=== PATIENT | male | born 1960 | race Caucasian/White ===

== ENCOUNTER 2017-06-26 13:35 | Emergency (ER) | payer SELFPAY ==
[~2017-06-26] VITALS: Ht 170.2 cm; Wt 117.9 kg
[2017-06-26 13:56] VITALS: BP 120/62
[2017-06-26 14:25] LABS: APPEARANCE,URINE CLEAR; BILIRUBIN, URINE NEGATIVE (NEGATIVE); GLUCOSE, URINE (UA) NEGATIVE (NEGATIVE); KETONES,URINE NEGATIVE (NEGATIVE); LEUKOCYTE ESTERASE ,URINE 1+ (NEGATIVE); NITRITE,URINE NEGATIVE (NEGATIVE); PH,URINE 6 (4.5-8.0); PROTEIN,URINE 2+ (NEGATIVE); UROBILINOGEN,URINE NORMAL MG/DL (0.0-1.0)
[2017-06-26] MEDS ORDERED: Ketorolac 60mg Inj IM ONE (14:30)
[2017-06-26 14:36] LABS: COLOR,URINE YELLOW
--- NOTE | 2017-06-26 14:56 | Emergency Room Report ---
History of Present Illness General Chief Complaint: Pain Source: Patient Present Illness HPI This patient states that he has a history of recurrent kidney stones. He states that he has had to have lithotripsy a little over a year ago. He states that he has been having flank pain on the right side since February of this year. He denies fever or chills. He denies nausea or vomiting. He has pain in his right flank. He denies dysuria or hematuria. He has no other complaints. Allergies: Coded Allergies: No Known Allergies (Unverified , 06/26/17) Patient History Past Medical History: see triage record, other - urolithiasis Social History: Denies: smoking, alcohol use, drug use Reviewed Nursing Documentation: PMH: Agreed; PSxH: Agreed Nursing Documentation-PMH Past Medical History: No Stated History Review of Systems All Other Systems: negative except mentioned in HPI Physical Exam Vital Signs Date Time Temp Pulse Resp B/P (MAP) Pulse Ox O2 Delivery O2 Flow Rate FiO2 06/26/17 13:49 98.0 77 18 120/62 95 Room Air 98.1 Sp02 EP Interpretation: reviewed, normal General Appearance: no apparent distress, alert, GCS 15, non-toxic Head: normocephalic, atraumatic Eyes: bilateral eye normal inspection, bilateral eye PERRL ENT: hearing grossly normal, normal pharynx, no angioedema, normal voice Neck: full range of motion, supple/symm/no masses Respiratory: chest non-tender, lungs clear, normal breath sounds, speaking full sentences Cardiovascular #1: regular rate, rhythm, no edema Gastrointestinal: normal bowel sounds, non tender, soft, non-distended, no guarding, no rebound Rectal: deferred Genitourinary: CVA tenderness (R) Musculoskeletal: back normal, gait/station normal, normal range of motion, non- tender Neurologic: alert, oriented x3, responsive, motor strength/tone normal, sensory intact, speech normal Psychiatric: judgement/insight normal, memory normal, mood/affect normal, no suicidal/homicidal ideation Skin: normal color, no rash, warm/dry, well hydrated Medical Decision Making Diagnostic Impression: Primary Impression: Nephrolithiasis ER Course Patient has nephrolithiasis. This is known to him previously. He has a 10 x 8 mm calculus within the right renal pelvis. There is no evidence of stone in the ureter. This should not cause the patient any pain. Likely this patient has musculoskeletal pain that is unrelated to the nephrolithiasis. There is no evidence of urinary tract infection. There is no emergency medical condition identified. The patient did request Percocet. However, this is not indicated at this time. Patient was educated he will not be receiving narcotics. The patient was offered prescription strength ibuprofen which he declined. Patient is given return precautions and follow-up instructions. Laboratory Tests Test 06/26/17 13:57 Urine Color Yellow Urine Appearance Clear Urine pH 6 (4.5-8.0) Urine Specific Wagner 1.020 (1.005-1.035) Urine Protein 2+ (NEGATIVE) H Urine Glucose (UA) Negative (NEGATIVE) Urine Ketones Negative (NEGATIVE) Urine Occult Blood 4+ (NEGATIVE) H Urine Nitrite Negative (NEGATIVE) Urine Bilirubin Negative (NEGATIVE) Urine Urobilinogen Normal MG/DL (0.0-1.0) Urine Leukocyte Esterase 1+ (NEGATIVE) H Urine RBC 10-15 /HPF (0 - 0) H Urine WBC 2-4 /HPF (0 - 0) Urine Squamous Epithelial Cells Occasional /LPF Urine Bacteria Occasional /HPF (NONE) CT/MRI/US Diagnostic Results CT/MRI/US Diagnostic Results : Imaging Test Ordered: CT abd/pelvis Impression Nephrolithiasis in R. Renal pelvis. See official report. Last Vital Signs Date Time Temp Pulse Resp B/P (MAP) Pulse Ox O2 Delivery O2 Flow Rate FiO2 06/26/17 14:26 98.1 06/26/17 13:56 77 18 120/62 95 Room Air Disposition: HOME, SELF-CARE Condition: Stable Scripts No Active Prescriptions or Reported Meds Additional Instructions: The Emergency Department only prescribes CONTROLLED SUBSTANCES for acute injuries. There is no evidence of an emergent condition requiring the requested medication refill, and no evidence of an acute injury. Controlled substances are very addictive and require close monitoring when being prescribed controlled substances an outpatient treatment The emergency department is not a resource to be used as outpatient followup, and therefore reserve the regular prescribing, or refill or regularly prescribed controlled substances for your PCP or your chronic pain management provider for your safety -- We urge you to follow up with your PRIMARY CARE DOCTOR who can fully evaluate you , Monitor your condition and safely prescribe any necessary medications that are controlled. SANA LORENZ D.O. June 26, 2017 14:56
--- NOTE | 2017-06-26 15:50 | Diagnostic Imaging Report ---
Indication: Abdominal pain Technique: Spiral acquisitions obtained through the abdomen and pelvis. No oral contrast utilized, per emergency room physician request No IV contrast utilized, per referring physician request.. Multiplanar reconstructions were generated. Total dose length product 1049.23 mGycm. CTDIvol(s) 18.84 mGy. Dose reduction achieved using automated exposure control Comparison: None Findings: There is a 10 x 8 mm calculus within the right renal pelvis. There does not appear to be any associated hydronephrosis. There is minimal stranding of the peripelvic fat, however. No other calculi are demonstrated on the right. No right ureteral calculi demonstrated. On the left, there is a punctate calculus in an upper pole calyx. No left hydronephrosis or ureteral calculi demonstrated. Lack of IV contrast limits assessment of the renal parenchyma. No gross renal parenchymal mass or cyst demonstrated. Lack of IV contrast limits assessment of the other solid organs. The liver, gallbladder, bile ducts, pancreas, spleen, adrenals are all unremarkable. No retroperitoneal or mesenteric mass or adenopathy. No pelvic mass or adenopathy. Lack of enteric contrast limits assessment of the GI tract. No evidence of diverticulosis or diverticulitis. Anastomotic khanh are seen in the cecum as well as 2 small khanh adjacent to the terminal ileum. The appendix is not demonstrated. No small bowel distention. No free or loculated intraperitoneal air or fluid is evident. The distal esophagus is unremarkable. The stomach is distended by food. The duodenum is unremarkable. There are bilateral fat-containing inguinal hernias The included lung bases are clear. The bones demonstrate mild degenerative spondylosis changes Impression: 10 x 8 mm calculus within the right renal pelvis. This appears to be nonobstructive. Minimal stranding of the peripelvic fat could indicate mild pyelitis, however. Nonobstructive punctate left upper pole calyceal calculus. No evidence of hydronephrosis or hydroureter on either side Limited assessment of the GI tract, due to lack of enteric contrast Suspect prior appendectomy Incidental findings of bilateral fat-containing inguinal hernias, mild degenerative spondylosis. The CT scanner at [facility] is accredited by the [employer] and the scans are performed using protocols designed to limit radiation exposure to as low as reasonably achievable to attain images of sufficient resolution adequate for diagnostic evaluation.
[2017-06-26 16:27] VITALS: BP 118/60
== END 2017-06-26 16:29 | disposition home or self-care (01) ==
LOC: EMR 15:27
DX: N20.0 Calculus of kidney (principal); Z87.442 Personal history of urinary calculi
CPT/HCPCS: 74176; 81003; 96372; 99284